=== PATIENT | male | born 1955 | race Caucasian/White ===

== ENCOUNTER 2016-05-08 16:30 | Inpatient (IN) | payer MEDICAID ==
[~2016-05-08] VITALS: Ht 172.7 cm; Wt 65.5 kg
--- NOTE | 2016-05-08 16:32 | NUR ---
Arrived via [facility], no beds available. C/O 07/13 bilat chest pain/tightness cough, low grade fever. states that he felt weak and had to sit, someone else called 911 as a result.
[2016-05-08 16:37] VITALS: BP 112/68; PULSE 113; RESP 22; TEMP 100.2; O2SAT 98
--- NOTE | 2016-05-08 16:45 | NUR ---
# 20 gauge angiocath placed to LFA. Use of asceptic technique. Opsite placed over site. Blood return noted. Blood for lab drawn from site. Flushed with 10 cc of normal saline. No evidence of infiltration noted. Patient tolerated well.
--- NOTE | 2016-05-08 16:47 | NUR ---
Placed in room 3 . Placed on thermo cementing folder operator, blood pressure machine and pulse oximeter. To gown for exam. Side rails up. Report given to Sarah HODGE.
--- NOTE | 2016-05-08 16:55 | NUR ---
Patient will be admitted to care of DR. WILLIAMSON. Admitted to TELE unit. Will go to room 129 B. Belongings list completed. Summary report printed. Report given to ADMIT NURSE
--- NOTE | 2016-05-08 16:55 | NUR ---
Patient will be admitted to care of dr. WILLIAMSON. Admitted to TELE unit. Will go to room 129 B. Belongings list completed. Summary report printed. Report given to ADMITTING NURSE.
--- NOTE | 2016-05-08 17:00 | NUR ---
DR. WASHINGTON AT BEDSIDE EXAMINING THE PT.
[2016-05-08 17:09] LABS: BASOPHILS % (AUTO) 0.2 % (0.0-2.0); EOSINOPHILS % (AUTO) 0.2 % (0.0-4.0); HEMATOCRIT 42.9 % (36-54); HEMOGLOBIN 14.2 g/dL (14.0-18.0); LYMPHOCYTES # (AUTO) 1.3 K/uL (1.0-5.5); LYMPHOCYTES % (AUTO) 10.2 % (20.5-51.5); MEAN CORPUSCULAR HEMOGLOBIN 29 pg (27-31); MEAN CORPUSCULAR HGB CONC 33 % (32-36); MEAN CORPUSCULAR VOLUME 88 fL (79.0-98.0); MONOCYTES # (AUTO) 0.6 K/uL (0.0-1.0); MONOCYTES % (AUTO) 4.6 % (1.7-9.3); NEUTROPHILS # (AUTO) 10.4 K/uL (1.8-7.7); NEUTROPHILS % (AUTO) 84.8 % (40.0-70.0); PLATELET COUNT (AUTO) 399 K/uL (130-430); RED BLOOD CELL COUNT(AUTO) 4.88 MIL/uL (4.2-6.2); RED CELL DISTRIBUTION WIDTH 15.5 % (9.0-15.0); WHITE BLOOD COUNT (AUTO) 12.3 K/uL (4.8-10.8)
[2016-05-08 17:20] LABS: CALCIUM 9.3 mg/dL (8.4-11.0); CREATININE 3.17 mg/dL (0.55-1.30); POTASSIUM 4.8 mmol/L (3.5-5.1)
[2016-05-08 17:25] LABS: ALBUMIN 3.6 g/dL (3.4-4.8); TOTAL BILIRUBIN 0.3 mg/dL (0.0-1.0); TOTAL PROTEIN, SERUM 7.1 g/dL (6.4-8.3)
[2016-05-08] MEDS ORDERED: FUROSEMIDE 40 MG/4 ML VIAL IVP ONE (17:45)
[2016-05-08] MEDS ORDERED: cefTRIAXone 1 GM in D5W 50 ML IV ONE (17:45)
[2016-05-08] MEDS ORDERED: CAT.2 PO (18:00)
[2016-05-08] MEDS ORDERED: POTA8TAB4 PO (18:00)
[2016-05-08] MEDS ORDERED: CARV6.2554 PO (18:00)
[2016-05-08] MEDS ORDERED: ISO10 PO (18:00)
[2016-05-08] MEDS ORDERED: ASA81 PO (18:00)
[2016-05-08] MEDS ORDERED: PRED20TA PO (18:00)
[2016-05-08] MEDS ORDERED: MELO15TA13 PO (18:00)
[2016-05-08] MEDS ORDERED: PRO40 PO (18:00)
--- NOTE | 2016-05-08 18:01 | NUR ---
Medication reconciliation entered as per meds in bag. Patient is a poor historian and is unable to say if he is taking all of these medications.
[2016-05-08] MEDS ORDERED: cefTRIAXone 1 GM VIAL ONE (18:09)
[2016-05-08] MEDS ORDERED: MORPHINE 4 MG/ML INJ. SYRINGE IVP ONE (18:15)
[2016-05-08] MEDS ORDERED: ASPIRIN 325 MG TABLET PO ONE (18:15)
[2016-05-08] MEDS ORDERED: ONDANSETRON HCL 4 MG/2 ML VIAL IVP ONE (18:15)
[2016-05-08] MEDS ORDERED: ENOXAPARIN SODIUM 30 MG/0.3 ML SYRINGE SUBCUT ONE (18:15)
--- NOTE | 2016-05-08 18:43 | NUR ---
pt. in bed resting, denies sob, pain 0/10, RR 18, HR 111, finishing up with his food tray, on hospital monitor and 2 L Oxygen
--- NOTE | 2016-05-08 19:15 | NUR ---
ADMISSION: The patient, AFSHIN CONRAD, 60 y/o, M admitted by RESHMA WILLIAMSON MD, was given written information regarding hospital policies, unit procedures and contact persons.
[2016-05-08 19:19] VITALS: BP 138/77; PULSE 102; RESP 20; TEMP 97.9; O2SAT 96
[2016-05-08 19:25] LABS: BILIRUBIN,URINE NEGATIVE (NEGATIVE); BLOOD, URINE NEGATIVE (NEGATIVE); CLARITY/URINE CLEAR (CLEAR); COLOR,URINE YELLOW (YELLOW); GLUCOSE,URINE NEGATIVE (NEGATIVE); KETONES,URINE NEGATIVE (NEGATIVE); LEUKOCYTE ESTERASE ,URINE NEGATIVE (NEGATIVE); NITRITE, URINE NEGATIVE (NEGATIVE); PROTEIN URINE 1+ (NEGATIVE); UROBILINOGEN,URINE 0.2 (0.2-1.0)
--- NOTE | 2016-05-08 19:30 | NUR ---
pt.arrival er-dept.pt.admitted chest pain. to admit pt.v/sa present stable status.pt.c/o chest pain.to apprise .
[2016-05-08 19:33] LABS: BACTERIA,URINE FEW /HPF (None Seen); MUCUS,URINE None Seen /LPF (None Seen); RBC,URINE 0-3 /HPF (0-3); WBC,URINE 0-3 /HPF (0-3)
--- NOTE | 2016-05-08 19:44 | NUR ---
CONSULT: DR MCNULTY (DR PETTIT O/C) Consult was called, alexandra Caceres RE chest pain
[2016-05-08 19:46] LABS: BARBITURATE, URINE NEGATIVE (NEG <=200)
[2016-05-08 19:47] LABS: BENZODIAZEPINE, URINE NEGATIVE (NEG <=150); CANNABINOID, URINE POSITIVE (NEG <=50); COCAINE, URINE NEGATIVE (NEG <=150); METHAMPHETAMINES SCREEN,URINE POSITIVE (NEG <=500); OPIATE, URINE NEGATIVE (NEG <=100); PHENCYCLIDINE SCREEN,URINE NEGATIVE (NEG <=25); UR TRICYCLIC ANTIDEPRESSANTS NEGATIVE (NEG <=300); URINE AMPHETAMINE POSITIVE (NEG <=500); URINE METHADONE NEGATIVE (NEG <=200); URINE OXYCODONE SCREEN NEGATIVE (NEG <=100); URINE PROPOXYPHENE SCREEN NEGATIVE (NEG <=300)
[2016-05-08 20:00] VITALS: BP 138/77; PULSE 102; RESP 16; TEMP 97.9; O2SAT 96
--- NOTE | 2016-05-08 20:00 | NUR ---
pt.assessed.pt.requested snack.snack provided. to asses pt.upon unit.awaiting 's arrival.apprised pt. call light w/in pt's reach.
[2016-05-08] MEDS ORDERED: LISI-209 PO (20:15)
--- NOTE | 2016-05-08 22:00 | NUR ---
pt.assessed.urinal emptied.awaiting .pt.requesting morphine. apprised.
[2016-05-08] MEDS ORDERED: TEMAZEPAM 15 MG CAPSULE PO PRN (23:00)
[2016-05-08] MEDS: ASPIRIN 81 MG TAB.CHEW PO SCH (23:15)
[2016-05-08] MEDS: CARVEDILOL 6.25 MG TABLET (COREG) PO SCH (23:15)
[2016-05-08] MEDS: ISOSORBIDE DINITRATE 10 MG TABLET (ISORDIL) PO SCH (23:15)
[2016-05-08] MEDS: cloNIDine HCL 0.2 MG TABLET PO SCH (23:15)
[2016-05-08] MEDS ORDERED: 0.45% NACL 1,000 ML IV SCH (23:15)
[2016-05-08] MEDS ORDERED: LORazepam 2 MG/ML VIAL IM PRN (23:30)
--- NOTE | 2016-05-08 23:30 | NUR ---
has assessd the pt.pt.reuestd morphine. was to order norco.pt.told no he wants morphine. did not write morphine nor norco.lynne administered ativan:1mg ivp.
--- NOTE | 2016-05-08 23:33 | NUR ---
2D ECHO: NOTIFIED VIA [facility].
[2016-05-09] VITALS (8 sets, daily range): BP systolic 106–138; BP diastolic 50–72; PULSE 79–105; RESP 16–18; TEMP 96.8–97.9; O2SAT 96–99
--- NOTE | 2016-05-09 | NUR ---
pt.presents wuiescent affect;calm,asleep.repositioend.urinal emptied.
--- NOTE | 2016-05-09 02:00 | NUR ---
pt.assessed.pt.presents quiescent affect;caqlm,asleep.urinal emptied.
--- NOTE | 2016-05-09 04:00 | NUR ---
pt.assessed pt.presents quiesent affect.pt.had requested snack.i have provided snack.call light w/in pt's reach.
--- NOTE | 2016-05-09 06:39 | NUR ---
pt.assessed.pt.presents quiescent affect.repositioned.
[2016-05-09 06:54] LABS: BASOPHILS # (AUTO) 0.1 K/uL (0.0-0.2); BASOPHILS % (AUTO) 0.7 % (0.0-2.0); EOSINOPHILS % (AUTO) 0.5 % (0.0-4.0); HEMATOCRIT 39.1 % (36-54); HEMOGLOBIN 12.7 g/dL (14.0-18.0); LYMPHOCYTES # (AUTO) 1.4 K/uL (1.0-5.5); MEAN CORPUSCULAR HEMOGLOBIN 29 pg (27-31); MEAN CORPUSCULAR HGB CONC 33 % (32-36); MEAN CORPUSCULAR VOLUME 89 fL (79.0-98.0); MONOCYTES # (AUTO) 0.8 K/uL (0.0-1.0); MONOCYTES % (AUTO) 8.7 % (1.7-9.3); NEUTROPHILS # (AUTO) 6.7 K/uL (1.8-7.7); NEUTROPHILS % (AUTO) 74.1 % (40.0-70.0); PLATELET COUNT (AUTO) 349 K/uL (130-430); RED BLOOD CELL COUNT(AUTO) 4.41 MIL/uL (4.2-6.2); RED CELL DISTRIBUTION WIDTH 15.2 % (9.0-15.0)
--- NOTE | 2016-05-09 07:25 | NUR ---
rn notes: patient is aaox 4 afebrile. vss stable. no chest pain noted nor other distress noted. lungs bilaterally diminished at the bases. abdomen soft and non distended. has iv access on the left hand #20. saline lock dry/intact. call lights within reach. safety measures maintianed. informed patient to call for assistance. no skin breakdown noted.
--- NOTE | 2016-05-09 08:57 | NUR ---
DUE MEDICATION GIVEN AT THIS TIME. QUITE BUT TRYING TO PULLED OUT NGT TUBE AND OTHER LINES. STILL ON BILATERAL SOFT WRIST RESTRAINT.
[2016-05-09] MEDS ORDERED: POTASSIUM CHLORIDE 8 MEQ TABLET.SA PO SCH (09:00)
[2016-05-09] MEDS ORDERED: LISINOPRIL 5 MG TABLET PO SCH (09:00)
[2016-05-09] MEDS: cloNIDine HCL 0.2 MG TABLET PO SCH ×2 (09:00→21:00)
[2016-05-09] MEDS ORDERED: MELOXICAM 7.5 MG TABLET PO SCH (09:00)
[2016-05-09] MEDS: ASPIRIN 81 MG TAB.CHEW PO SCH (09:15)
[2016-05-09] MEDS: CARVEDILOL 6.25 MG TABLET (COREG) PO SCH ×2 (09:16→20:11)
[2016-05-09] MEDS: ISOSORBIDE DINITRATE 10 MG TABLET (ISORDIL) PO SCH ×2 (09:16→20:09)
[2016-05-09] MEDS: PANTOPRAZOLE SODIUM 40 MG TAB PO SCH (09:17)
[2016-05-09] MEDS: PREDNISONE 20 MG TABLET PO SCH (09:17)
[2016-05-09] MEDS: ENOXAPARIN SODIUM 30 MG/0.3 ML SYRINGE SUBCUT SCH ×2 (09:20→20:11)
--- NOTE | 2016-05-09 09:30 | NUR ---
asleep at this time. no pain nor distress noted. refused to have oxygen for now. oxygen saturation is 96% on room air.
[2016-05-09] MEDS: IPRATROPIUM/ALBUTEROL SULFATE 3 ML AMPUL.NEB INH SCH ×5 (09:45→23:30)
[2016-05-09 10:58] LABS: CREATININE 2.82 mg/dL (0.55-1.30); POTASSIUM 4.6 mmol/L (3.5-5.1)
--- NOTE | 2016-05-09 11:00 | NUR ---
ejection fraction on to the 2 d echo is 40% to 45%. no sob noted.
[2016-05-09 11:26] LABS: TOTAL BILIRUBIN 0.2 mg/dL (0.0-1.0)
[2016-05-09] MEDS: HYDROcodone/ACETAMIN 10-325 MG TAB PO PRN (12:47)
--- NOTE | 2016-05-09 12:51 | NUR ---
norco given for chest pain grade of 7. has sob noted. oxygen placed on him. at first he refused. o 2sat is 92% on room air.
--- NOTE | 2016-05-09 12:51 | NUR ---
vital signs with chest pain. temp 97, hr is 92, respiration is 20 and bp is 126/70. made comfortable. hob elevated call lights within reach.
--- NOTE | 2016-05-09 13:00 | NUR ---
patient goes back to sleep. feels bit better. assists on adls.
--- NOTE | 2016-05-09 13:38 | NUR ---
dr santos came and informed regarding the chest pain. patient wants morphine 2 mg and lasix order
[2016-05-09] MEDS ORDERED: FUROSEMIDE 40 MG TABLET PO ONE (14:00)
--- NOTE | 2016-05-09 14:00 | NUR ---
scds bilaterally placed on both lower legs.
--- NOTE | 2016-05-09 16:23 | NUR ---
patient is stable. no pain nor distress noted.
[2016-05-09] MEDS: HYDROcodone/ACETAMIN 5-325 MG TAB (NORCO/ VICODIN) PO PRN (18:13)
--- NOTE | 2016-05-09 18:16 | NUR ---
norco tab 5/325mg po given. chest pain grade of 6/10. made comfortable. assists on adls. no bowel movement today.
--- NOTE | 2016-05-09 18:28 | NUR ---
eating dinner good. assists on adls.
--- NOTE | 2016-05-09 19:40 | NUR ---
Initial Notes Pt is A/Ox4. Pt noted to bed resting, with no c/o chest pain or sob. VSS. Pt requested sandwich and juice at this time. POC discussed with pt, pt verbalized understanding, pt is passive to teaching. Safety precautions in place, side rails up x3 with bed in lowest, locked position, with bed alarm on at all times. Pt educated business analyst sales operations light use, and correct back demonstration noted. Call light in hand. Will continue to monitor.
--- NOTE | 2016-05-09 19:46 | NUR ---
sbar report given to incoming nurse Snow DEE
--- NOTE | 2016-05-10 00:15 | NUR ---
PATIENT RESTING: Patient resting quietly. No acute distress noted. Vital signs within normal range. Call light in reach. Will continue to monitor.
--- NOTE | 2016-05-10 02:00 | NUR ---
Rounds Pt is sleeping comfortably at this time. No acute distress noted. VSS. IV intact. Call light within reach. Will continue to monitor.
[2016-05-10 04:01] VITALS: BP 105/50; PULSE 82; RESP 18; TEMP 96.6; O2SAT 98
[2016-05-10] MEDS: IPRATROPIUM/ALBUTEROL SULFATE 3 ML AMPUL.NEB INH SCH ×6 (04:10→23:25)
--- NOTE | 2016-05-10 04:30 | NUR ---
PATIENT RESTING: Patient resting quietly. No acute distress noted. Vital signs within normal range.
[2016-05-10 06:34] LABS: BASOPHILS % (AUTO) 0.3 % (0.0-2.0); EOSINOPHILS # (AUTO) 0.1 K/uL (0.0-0.4); EOSINOPHILS % (AUTO) 0.7 % (0.0-4.0); HEMATOCRIT 37.3 % (36-54); HEMOGLOBIN 12.4 g/dL (14.0-18.0); LYMPHOCYTES # (AUTO) 1.4 K/uL (1.0-5.5); MEAN CORPUSCULAR HEMOGLOBIN 30 pg (27-31); MEAN CORPUSCULAR HGB CONC 33 % (32-36); MEAN CORPUSCULAR VOLUME 89 fL (79.0-98.0); MONOCYTES # (AUTO) 0.7 K/uL (0.0-1.0); NEUTROPHILS # (AUTO) 9.4 K/uL (1.8-7.7); PLATELET COUNT (AUTO) 333 K/uL (130-430); RED BLOOD CELL COUNT(AUTO) 4.21 MIL/uL (4.2-6.2); RED CELL DISTRIBUTION WIDTH 14.8 % (9.0-15.0); WHITE BLOOD COUNT (AUTO) 11.6 K/uL (4.8-10.8)
--- NOTE | 2016-05-10 06:41 | NUR ---
Closing Notes Pt is sleeping at this time. No acute distress noted or sob. VSS. IV intact. Safety measures maintained. All needs met throughout shift. Will endorse care to am nurse. Call light within reach.
[2016-05-10 06:50] LABS: CALCIUM 8.7 mg/dL (8.4-11.0); CREATININE 2.47 mg/dL (0.55-1.30)
[2016-05-10 07:12] LABS: ALBUMIN 2.3 g/dL (3.4-4.8); TOTAL BILIRUBIN 0.1 mg/dL (0.0-1.0); TOTAL PROTEIN, SERUM 5.7 g/dL (6.4-8.3)
--- NOTE | 2016-05-10 07:25 | NUR ---
rn notes: patient is aaox 4. afebrile. vss stable. lungs bilaterally clear. abdomen soft and non distended. on 2lnc of oxygen. has bilaterally bruises on both arms. has iv access on the left hand #20.dry/intact/patent. saline lock. no fluids noted. patient needs assistance to the bathroom. has bilateral scds in placed. call lights within reach.maintained safety measures.bed in low position. informed patient to call for assistance. voids in the urinal.
[2016-05-10 07:35] VITALS: PULSE 95; RESP 18; TEMP 96.9; O2SAT 98
--- NOTE | 2016-05-10 08:00 | NUR ---
had eaten breakfast. tolerating well. eat 100%. voiding at the urinal.
[2016-05-10] MEDS: ENOXAPARIN SODIUM 30 MG/0.3 ML SYRINGE SUBCUT SCH ×2 (08:46→22:24)
[2016-05-10] MEDS: HYDROcodone/ACETAMIN 5-325 MG TAB (NORCO/ VICODIN) PO PRN (08:47)
[2016-05-10] MEDS: CARVEDILOL 6.25 MG TABLET (COREG) PO SCH ×2 (08:47→22:23)
[2016-05-10] MEDS: FUROSEMIDE 40 MG TABLET PO SCH (08:48)
[2016-05-10] MEDS: PANTOPRAZOLE SODIUM 40 MG TAB PO SCH (08:48)
[2016-05-10] MEDS: ISOSORBIDE DINITRATE 10 MG TABLET (ISORDIL) PO SCH ×2 (08:48→22:20)
[2016-05-10] MEDS: cloNIDine HCL 0.2 MG TABLET PO SCH ×2 (08:49→22:23)
[2016-05-10] MEDS: ASPIRIN 81 MG TAB.CHEW PO SCH (08:49)
[2016-05-10] MEDS: PREDNISONE 20 MG TABLET PO SCH (08:49)
--- NOTE | 2016-05-10 09:00 | NUR ---
NORCO tablet given for pain. grade of 6/10. made comfortable.
--- NOTE | 2016-05-10 09:10 | NUR ---
due medication given as ordered. assists on adls.
[2016-05-10 10:00] VITALS: BP 135/57; PULSE 61; RESP 16; TEMP 97.6; O2SAT 100
--- NOTE | 2016-05-10 11:00 | NUR ---
asleep at this time. stable no pain nor distress noted.
[2016-05-10 12:31] VITALS: BP 110/52; PULSE 80; RESP 18; TEMP 97.9; O2SAT 98
--- NOTE | 2016-05-10 13:00 | NUR ---
had eaten lunch 100%.no chest pain nor distress noted.
--- NOTE | 2016-05-10 15:00 | NUR ---
moved to room 128-A at this time.
[2016-05-10 16:09] VITALS: BP 109/50; PULSE 84; RESP 17; TEMP 97.8; O2SAT 99
--- NOTE | 2016-05-10 16:30 | NUR ---
patient is asleep at this time. no pain nor distress noted.
--- NOTE | 2016-05-10 17:11 | NUR ---
dr bone came and discontinue data migration lead. patient is stable. no pain nor distress noted. scds removed bilaterally
--- NOTE | 2016-05-10 17:20 | NUR ---
refused the scds bilaterally.
--- NOTE | 2016-05-10 18:00 | NUR ---
has outsole caser to arranged for d/c planning. please follow up in AM
--- NOTE | 2016-05-10 18:32 | NUR ---
eating dinner 100%. no chest pain nor distress noted.
--- NOTE | 2016-05-10 19:30 | NUR ---
sbar report given to incoming nurse Virginia Rn and Cynthia HODGE
[2016-05-10 20:00] VITALS: BP 103/61; PULSE 86; RESP 18; TEMP 97.4; O2SAT 99
[2016-05-11] VITALS (7 sets, daily range): BP systolic 105–137; BP diastolic 45–80; PULSE 81–93; RESP 16–19; TEMP 97.6–99; O2SAT 94–98
[2016-05-11] MEDS: IPRATROPIUM/ALBUTEROL SULFATE 3 ML AMPUL.NEB INH SCH ×6 (03:51→23:32)
[2016-05-11 07:05] LABS: BASOPHILS % (AUTO) 0.3 % (0.0-2.0); EOSINOPHILS # (AUTO) 0.1 K/uL (0.0-0.4); EOSINOPHILS % (AUTO) 0.5 % (0.0-4.0); HEMATOCRIT 39.7 % (36-54); HEMOGLOBIN 13.2 g/dL (14.0-18.0); LYMPHOCYTES # (AUTO) 1.3 K/uL (1.0-5.5); MEAN CORPUSCULAR HEMOGLOBIN 29 pg (27-31); MEAN CORPUSCULAR HGB CONC 33 % (32-36); MEAN CORPUSCULAR VOLUME 88 fL (79.0-98.0); MONOCYTES # (AUTO) 0.7 K/uL (0.0-1.0); MONOCYTES % (AUTO) 5.6 % (1.7-9.3); NEUTROPHILS # (AUTO) 10.1 K/uL (1.8-7.7); NEUTROPHILS % (AUTO) 82.6 % (40.0-70.0); RED CELL DISTRIBUTION WIDTH 15.1 % (9.0-15.0)
[2016-05-11 07:22] LABS: CALCIUM 9.1 mg/dL (8.4-11.0); CREATININE 2.11 mg/dL (0.55-1.30); POTASSIUM 4.5 mmol/L (3.5-5.1)
[2016-05-11 07:25] LABS: WHITE BLOOD COUNT (AUTO) 12.2 K/uL (4.8-10.8)
--- NOTE | 2016-05-11 07:25 | NUR ---
am rounds: patient lying on his side. with iv saline lock at left forearm intact. no distress. report given at bedside.call light with in reach. pt verbalized understanding of used.
[2016-05-11] MEDS: PREDNISONE 20 MG TABLET PO SCH (08:21)
[2016-05-11] MEDS: ASPIRIN 81 MG TAB.CHEW PO SCH (08:21)
[2016-05-11] MEDS: FUROSEMIDE 40 MG TABLET PO SCH (08:21)
[2016-05-11] MEDS: ENOXAPARIN SODIUM 30 MG/0.3 ML SYRINGE SUBCUT SCH ×2 (08:22→22:08)
[2016-05-11] MEDS: PANTOPRAZOLE SODIUM 40 MG TAB PO SCH (08:22)
--- NOTE | 2016-05-11 08:33 | NUR ---
rounds: had breakfast already. informed patient social service will talk to patient regarding intermediate when bed is available and if ok to dc home by md.
[2016-05-11] MEDS: ISOSORBIDE DINITRATE 10 MG TABLET (ISORDIL) PO SCH ×2 (09:00→22:10)
[2016-05-11] MEDS: cloNIDine HCL 0.2 MG TABLET PO SCH ×2 (09:00→22:11)
[2016-05-11 09:26] LABS: PLATELET COUNT (AUTO) 391 K/uL (130-430)
--- NOTE | 2016-05-11 09:29 | NUR ---
Nutrition Update Lonnie Scale 17 noted. Pt admitted for chest pain. Diet: cardiac BMI: 21.9 kg/m2 RD to follow per nutrition care standards.
--- NOTE | 2016-05-11 10:05 | NUR ---
rounds: patient side lying on the bed. no complained made. resting.
--- NOTE | 2016-05-11 12:00 | NUR ---
rounds: stable. eating lunch.
--- NOTE | 2016-05-11 12:36 | NUR ---
Social Service Note: Pt referred to group social worker by physician due to pt's drug use and homelessness. OPTIC FIBRE DRAWER met with pt at bedside; pt laying in bed. Pt states that he has been homeless for about 2 years; pt states that he stays around [place]. OPTIC FIBRE DRAWER spoke with pt about his discharge plan; pt states that he plans to return to the streets; pt states that he has not been using the winter shelters; OPTIC FIBRE DRAWER spoke with pt about going to a winter nursing home upon discharge; pt stated that he wanted to return to [place]. OPTIC FIBRE DRAWER provided pt with listing of winter shelters. Pt states that he is working with "his social science analyst" to obtain permanent housing. Pt states that he has no other needs/concerns at this time. OPTIC FIBRE DRAWER has placed homeless waiver in pt's chart. OPTIC FIBRE DRAWER updated pt's nurse. OPTIC FIBRE DRAWER will remain available for support and will follow up as needed.
--- NOTE | 2016-05-11 14:10 | NUR ---
rounds: sleeping during rounds. stable.
[2016-05-11] MEDS: MORPHINE 2 MG/ML INJ. SYRINGE IVP PRN ×2 (15:10→22:16)
--- NOTE | 2016-05-11 15:10 | NUR ---
pain meds: c/o chest pressure and due iv pain meds given per request.
[2016-05-11] MEDS: CARVEDILOL 6.25 MG TABLET (COREG) PO SCH ×2 (15:11→22:10)
--- NOTE | 2016-05-11 18:24 | NUR ---
md rounds: patient seen by dr bone with orders dc home in am and f/u with [facility].
--- NOTE | 2016-05-11 18:25 | NUR ---
closing notes: stable. ate dinner. needs attended to.
--- NOTE | 2016-05-11 20:00 | NUR ---
Rounds Received patient lying in bed resting and watching tv, denies of any pain, no acute distress noted. IV site checked intact and patent on saline lock. Instructed patient to call nurse when getting out of bed,call light within reach.
--- NOTE | 2016-05-11 22:46 | NUR ---
Pain Patient resting quietly, pain medication given earlier with effective result noted. call light within reach. will monitor.
[2016-05-12] VITALS: BP 108/64; PULSE 92; RESP 17; TEMP 98.2; O2SAT 98
[2016-05-12] MEDS: HYDROcodone/ACETAMIN 10-325 MG TAB PO PRN (02:19)
--- NOTE | 2016-05-12 02:21 | NUR ---
C/O chest pain Patient c/o chest pain, medication for pain given. will monitor for effectiveness.
[2016-05-12] MEDS: IPRATROPIUM/ALBUTEROL SULFATE 3 ML AMPUL.NEB INH SCH ×2 (04:11→07:26)
--- NOTE | 2016-05-12 04:30 | NUR ---
Rounds Patient resting quietly, no s/s of any pain, no acute distress noted. call light within reach.
[2016-05-12 04:32] VITALS: BP 112/76; PULSE 89; RESP 18; TEMP 98.2; O2SAT 97
[2016-05-12] MEDS ORDERED: CARV12.548 PO (05:48)
[2016-05-12] MEDS ORDERED: FURO-149 PO (05:48)
[2016-05-12] MEDS ORDERED: PRO40 PO (05:49)
[2016-05-12] MEDS ORDERED: PRED10TA PO (05:50)
--- NOTE | 2016-05-12 06:51 | NUR ---
Closing notes No other changes noted on patient current condition.
[2016-05-12 07:30] VITALS: BP 120/70; PULSE 78; RESP 18; TEMP 98.2; O2SAT 96
--- NOTE | 2016-05-12 07:30 | NUR ---
am rounds: patient lying on the bed asleep. no other complained made.
[2016-05-12 08:40] VITALS: BP 112/76; PULSE 78
[2016-05-12 08:41] VITALS: BP 112/76; PULSE 89; RESP 19; TEMP 98.2; O2SAT 97
[2016-05-12 08:43] VITALS: BP 112/76; PULSE 97; RESP 18; TEMP 98.2; O2SAT 97
--- NOTE | 2016-05-12 08:50 | NUR ---
rn notes: patient walk out the room and left. licensed master social worker with tere charge nurse in the room talking to the patient,but still patient refused to sign dc instructions and refused prescriptions as well. patient left without taking his own meds and some personal belongings with him.patient even refused the senior care offered to him by licensed master social worker.
--- NOTE | 2016-05-12 08:55 | NUR ---
Social Service Note: LEGAL EXECUTIVE was called to meet with pt and charge nurse at bedside; pt appears upset due to the prescription not having any pain medications on it. LEGAL EXECUTIVE spoke with pt about following up with his primary care physician or [facility]. Pt states that he wants to go back to [place] and [facility] and will wait for a taxi. While LEGAL EXECUTIVE was at nurses station pt walked out. LEGAL EXECUTIVE and charge nurse attempted to locate pt; pt was not able to be found. LEGAL EXECUTIVE alerted nurse to cancel taxi voucher as pt could not be found.
[2016-05-12] MEDS ORDERED: PREDNISONE 10 MG TABLET PO SCH (09:00)
--- NOTE | 2016-05-13 14:28 | NUR ---
Discharge Follow Up Phone Call: SCREWHEAD STONER AND POLISHER called and attempted to speak with pt ([phone]), but it was the wrong number; there is no other contact information for pt. Career Development Coordinator is unable to follow up with pt at this time.
== END 2016-05-12 08:40 | disposition home or self-care (01) | DRG 190 ==
LOC: SED 16:30 → STU 18:45 → SMU 05-10 17:05
PROVIDERS: ADMIT Internal Medicine; ATTEND Internal Medicine
DX: I21.4 Non-ST elevation (NSTEMI) myocardial infarction (principal); I50.41 Acute combined systolic (congestive) and diastolic (congestive) heart failure; N17.9 Acute kidney failure, unspecified; I42.9 Cardiomyopathy, unspecified; J44.9 Chronic obstructive pulmonary disease, unspecified; N18.9 Chronic kidney disease, unspecified; F17.210 Nicotine dependence, cigarettes, uncomplicated; F15.10 Other stimulant abuse, uncomplicated; Z59.0 Homelessness; I13.0 Hypertensive heart and chronic kidney disease with heart failure and stage 1 through stage 4 chronic kidney disease, or unspecified chronic kidney disease
CPT/HCPCS: 36415; 71010; 80048; 80053; 80307; 81000-TC; 82565-TC; 83605; 83880; 84484; 85025; 87040-TC; 87081; 93005; 93306; 94640; 94760; 96365; 96372; 96375; 99291; J0696; J1650; J1940; J2060; J2270; J2405; J7512